=== PATIENT | female | born 1940 | race Caucasian/White ===

== ENCOUNTER 2020-03-16 09:48 | Observation (INO) ==
[2020-03-16] MEDS ORDERED: Aspirin 81 MG TAB.CHEW PO ONE (10:00)
[2020-03-16 10:12] LABS: Basophils % 0.3 %; Eosinophils # 0.1 K/mcL (0.0-0.6); Eosinophils % 0.9 %; Hematocrit 44.9 % (35.3-44.9); Hemoglobin 14.7 g/dL (11.5-15.4); Immature Granulocytes % 0.5 % (0-4); Lymphocytes # 3.3 K/mcL (0.6-4.6); Lymphocytes % 21.6 %; Mean Corpuscular HGB Conc 32.7 g/dL (31.6-35.5); Mean Corpuscular Hemoglobin 29.5 pg (28.0-33.3); Mean Platelet Volume 11.2 fL (9.4-12.4); Monocytes # 1.5 K/mcL (0.0-1.3); Neutrophils # 10.2 K/mcL (1.6-8.9); Platelet Count 293 K/mcL (140-400); Red Blood Count 4.99 M/mcL (3.82-4.97); Red Cell Distribution Width 12.6 % (11.5-14.5); Segmented Neutrophils % 66.7 %; White Blood Count 15.2 K/mcL (4.3-11.1)
[2020-03-16] MEDS ORDERED: Nitroglycerin 0.4 MG TAB.SUBL SL PRN (10:19)
[2020-03-16] MEDS ORDERED: Isovue-370 500 ML BOTTLE IVP ONE (10:24)
[2020-03-16] MEDS ORDERED: 0.9 % Sodium Chloride 1,000 ML IVC ONE (10:29)
[2020-03-16 10:36] LABS: Alanine Aminotransferase 19 Units/L (7-52); Albumin 4.2 g/dL (3.5-5.7); Albumin/Globulin Ratio 1.2 (1.1-2.2); Alkaline Phosphatase 82 Units/L (34-104); Aspartate Amino Transferase 21 Units/L (13-39); BUN/Creatinine Ratio 13 (6-26); Bilirubin,Total 1.1 mg/dL (0.3-1.0); Blood Urea Nitrogen 13 mg/dL (8-23); Calcium 11.2 mg/dL (8.6-10.3); Carbon Dioxide 32 mEq/L (23-29); Chloride 93 mEq/L (98-107); Globulin 3.4 g/dL (2.4-3.5); Glucose 124 mg/dL (70-105); Osmolality,Calculated 274 (280-300); Potassium 2.8 mEq/L (3.5-5.1); Sodium 131 mEq/L (136-145); Total Protein 7.6 g/dL (6.4-8.9); Troponin I < 0.03 ng/mL (< 0.04); eGFR For African Americans > 60 (> 60); eGFR For Non-African Americans 54 (> 60)
[2020-03-16] MEDS ORDERED: Potassium Effervescent 25 MEQ TABLET.EFF PO ONE (10:53)
[2020-03-16 11:15] LABS: Magnesium 1.6 mg/dL (1.6-2.6)
[2020-03-16] MEDS ORDERED: Naloxone 0.4 MG/ML INJ IVP PRN (14:03)
[2020-03-16] MEDS ORDERED: Famotidine 20 MG TABLET PO PRN (14:08)
[2020-03-16] MEDS ORDERED: Diphenoxylate/Atropine 1 TAB TABLET PO PRN (14:08)
[2020-03-16] MEDS ORDERED: clonazePAM 0.5 MG TABLET PO PRN (14:08)
[2020-03-16 14:36] LABS: Chol/HDL Ratio 3.3 (0-4.9); Cholesterol 136 mg/dL (< 200); HDL Cholesterol 41 mg/dL (40-59); LDL Cholesterol,Calculated 72 mg/dL (0-99); Triglycerides 115 mg/dL (< 150)
[2020-03-16 15:25] LABS: Estimated Average Glucose 117 mg/dl
[2020-03-16 16:25] LABS: Troponin I < 0.03 ng/mL (< 0.04)
[2020-03-16] MEDS: 0.9 % Sodium Chloride 1,000 ML IVC SCH (17:09)
[2020-03-16] MEDS: Ipratropium/Albuterol Neb 3 ML IH SCH ×2 (17:47→22:08)
[2020-03-16] MEDS: *HR* Heparin 5,000 UNIT/ML VIAL SQ SCH (18:12)
[2020-03-16 18:25] LABS: Bilirubin,Urine Negative (Negative); Blood,Urine Trace (Negative); Clarity,Urine Clear (Clear); Color,Urine Yellow (Yellow); Glucose,Urine (UA) Normal (Normal); Ketones,Urine Negative (Negative); Leukocyte Esterase,Urine Negative (Negative); Nitrite,Urine Negative (Negative); Protein,Urine Negative (Neg-Trace); Specific Gravity,Urine > 1.030 (1.010-1.025); Urobilinogen,Urine Normal (Normal)
[2020-03-16 18:27] LABS: Bacteria,Urine None Seen per hpf (None-Few); Hyaline Casts,Urine None Seen per lpf (None-Few); Squamous Epithelial Cell,Urine Many per lpf (None-Few)
[2020-03-16] MEDS: Primidone 50 MG TABLET PO SCH (21:34)
[2020-03-17] MEDS ORDERED: Ibuprofen 800 MG TABLET PO ONE (01:52)
[2020-03-17] MEDS: Ipratropium/Albuterol Neb 3 ML IH SCH ×4 (04:22→22:02)
[2020-03-17 05:49] LABS: Basophils % 0.2 %; Eosinophils # 0.1 K/mcL (0.0-0.6); Hematocrit 39.1 % (35.3-44.9); Immature Granulocytes % 0.5 % (0-4); Lymphocytes # 2.5 K/mcL (0.6-4.6); Lymphocytes % 22.4 %; Mean Corpuscular HGB Conc 32.7 g/dL (31.6-35.5); Mean Corpuscular Hemoglobin 29.3 pg (28.0-33.3); Mean Corpuscular Volume 89.5 fL (83.0-100.0); Mean Platelet Volume 11.4 fL (9.4-12.4); Monocytes % 8.6 %; Neutrophils # 7.5 K/mcL (1.6-8.9); Platelet Count 226 K/mcL (140-400); Red Blood Count 4.37 M/mcL (3.82-4.97); Red Cell Distribution Width 12.5 % (11.5-14.5); Segmented Neutrophils % 67.3 %; White Blood Count 11.2 K/mcL (4.3-11.1)
[2020-03-17 05:51] LABS: Hemoglobin 12.8 g/dL (11.5-15.4)
[2020-03-17 06:14] LABS: BUN/Creatinine Ratio 14 (6-26); Blood Urea Nitrogen 13 mg/dL (8-23); Calcium 10.4 mg/dL (8.6-10.3); Carbon Dioxide 29 mEq/L (23-29); Chloride 94 mEq/L (98-107); Glucose 112 mg/dL (70-105); Magnesium 1.8 mg/dL (1.6-2.6); Osmolality,Calculated 273 (280-300); Phosphorous 2.8 mg/dL (2.7-4.5); Potassium 2.7 mEq/L (3.5-5.1); Sodium 131 mEq/L (136-145); eGFR For African Americans > 60 (> 60); eGFR For Non-African Americans 60 (> 60)
[2020-03-17] MEDS: *HR* Heparin 5,000 UNIT/ML VIAL SQ SCH ×2 (06:15→18:11)
[2020-03-17] MEDS ORDERED: Regadenoson 0.4 MG/5 ML SYRINGE IVP ONE (06:22)
[2020-03-17] MEDS ORDERED: Potassium Chloride 40 MEQ, Lidocaine 1% 2 ML in 0.9 % Sodium Chloride 500 ML IVPB ONE (08:25)
[2020-03-17] MEDS ORDERED: VITAMIN A 10000 UNIT PO SCH (09:00)
[2020-03-17] MEDS ORDERED: NON-FORMULARY MEDICATION 1 EACH EACH (Magnesium 250 MG) PO SCH (09:00)
[2020-03-17] MEDS ORDERED: NON-FORMULARY MEDICATION 1 EACH EACH (Trospium Chloride 20 MG) PO SCH (09:00)
[2020-03-17] MEDS: Primidone 50 MG TABLET PO SCH ×2 (13:55→21:22)
[2020-03-17] MEDS: Cyanocobalamin (B-12) 1,000 MCG TABLET PO SCH (13:56)
[2020-03-17] MEDS: Cholecalciferol (D-3) 1,000 UNIT (25MCG) TABLET PO SCH (13:56)
[2020-03-17] MEDS: metOLazone 2.5 MG TABLET PO SCH (13:56)
[2020-03-17] MEDS: PARoxetine 20 MG TABLET PO SCH (13:57)
[2020-03-17 20:36] LABS: BUN/Creatinine Ratio 14 (6-26); Blood Urea Nitrogen 15 mg/dL (8-23); Calcium 10.1 mg/dL (8.6-10.3); Carbon Dioxide 30 mEq/L (23-29); Chloride 98 mEq/L (98-107); Glucose 110 mg/dL (70-105); Osmolality,Calculated 277 (280-300); Potassium 3.3 mEq/L (3.5-5.1); Sodium 133 mEq/L (136-145); eGFR For African Americans > 60 (> 60); eGFR For Non-African Americans 50 (> 60)
[2020-03-18] MEDS: 0.9 % Sodium Chloride 1,000 ML IVC SCH (00:51)
[2020-03-18] MEDS: Ipratropium/Albuterol Neb 3 ML IH SCH ×2 (03:40→10:27)
[2020-03-18 04:36] LABS: BUN/Creatinine Ratio 15 (6-26); Blood Urea Nitrogen 14 mg/dL (8-23); Carbon Dioxide 28 mEq/L (23-29); Chloride 101 mEq/L (98-107); Glucose 114 mg/dL (70-105); Magnesium 1.6 mg/dL (1.6-2.6); Osmolality,Calculated 279 (280-300); Potassium 3.4 mEq/L (3.5-5.1); Sodium 134 mEq/L (136-145); eGFR For African Americans > 60 (> 60); eGFR For Non-African Americans 56 (> 60)
[2020-03-18] MEDS: *HR* Heparin 5,000 UNIT/ML VIAL SQ SCH (06:04)
[2020-03-18 07:30] VITALS: BP 133/75
[2020-03-18] MEDS: Cyanocobalamin (B-12) 1,000 MCG TABLET PO SCH (08:16)
[2020-03-18] MEDS: Cholecalciferol (D-3) 1,000 UNIT (25MCG) TABLET PO SCH (08:16)
[2020-03-18] MEDS: PARoxetine 20 MG TABLET PO SCH (08:16)
[2020-03-18] MEDS: Primidone 50 MG TABLET PO SCH (08:16)
[2020-03-18] MEDS: metOLazone 2.5 MG TABLET PO SCH (08:20)
== END 2020-03-18 14:16 | disposition home or self-care (01) ==
LOC: 3BNU 09:48 → EMEROOARM 09:48 → SUATTDRO 14:06 → 3BNU 15:07
PROVIDERS: ADMIT Internal Medicine; ATTEND Internal Medicine

== ENCOUNTER 2021-11-12 06:48 | Observation (INO) ==
[~2021-11-12 06:48] MED LIST: Povidone-Iodine 45 ML, Sodium Chloride IRRigation 1,000 ML IR ONE; TOTAL JOINT MIXTURE (100ML) INTRAART ONE
[2021-11-12] MEDS ORDERED: CeFAZolin Syr 2,000MG/20 ML 2,000 MG/20 ML SYRINGE IVPB ONE (07:10)
[2021-11-12] MEDS ORDERED: Ringers Solution, Lactated 1,000 ML IVC SCH (07:15)
[2021-11-12] MEDS ORDERED: Vancomycin 1,500 MG/265 ML IV.SOLN IVPB ONE (07:39)
[2021-11-12] MEDS ORDERED: Famotidine 20 MG/2 ML VIAL IVP ONE (08:00)
[2021-11-12] MEDS ORDERED: Acetaminophen IV 1,000 MG/100 ML BAG IVPB ONE (08:00)
[2021-11-12] MEDS ORDERED: Albuterol 2.5 MG/3 ML NEBULIZER IH ONE (08:00)
[2021-11-12] MEDS ORDERED: *HR* Propofol 200 MG/20 ML VIAL IVP ONE (08:24)
[2021-11-12] MEDS ORDERED: Ondansetron 4 MG/2 ML VIAL ONE (08:26)
[2021-11-12] MEDS ORDERED: Tranexamic Acid 1,000 MG/10 ML VIAL ONE (08:26)
[2021-11-12] MEDS ORDERED: Lidocaine -MPF 2% 5 ML VIAL ONE (08:26)
[2021-11-12] MEDS ORDERED: *HR* FentaNYL (PF) 100 MCG/2 ML VIAL ONE (08:33)
[2021-11-12] MEDS ORDERED: Vancomycin 1,000 MG VIAL ONE (09:00)
[2021-11-12] MEDS ORDERED: *HR* Promethazine 25 MG/ML VIAL IM PRN (13:01)
[2021-11-12] MEDS ORDERED: Diphenoxylate/Atropine 1 TAB TABLET PO PRN (13:01)
[2021-11-12] MEDS ORDERED: *HR* OxyCODONE Immed Rel 5 MG TABLET PO PRN (13:01)
[2021-11-12] MEDS ORDERED: Naloxone 0.4 MG/ML INJ IVP PRN (13:01)
[2021-11-12] MEDS ORDERED: Ondansetron 4 MG/2 ML VIAL IVP PRN (13:01)
[2021-11-12] MEDS ORDERED: clonazePAM 0.5 MG TABLET PO PRN (13:01)
[2021-11-12] MEDS ORDERED: MOM Conc 10 ML UD.LIQ PO PRN (13:01)
[2021-11-12] MEDS ORDERED: Sennosides 8.6 MG TABLET PO PRN (13:01)
[2021-11-12] MEDS: Ketorolac 30 MG/ML VIAL IVP SCH ×3 (13:44→23:41)
[2021-11-12] MEDS: Ascorbic Acid 500 MG TABLET PO SCH (18:18)
[2021-11-12] MEDS: CeFAZolin 2 GM/120 ML BAG IVPB SCH ×2 (18:56→23:41)
[2021-11-12] MEDS: Ringers Solution, Lactated 1,000 ML IVC SCH (20:02)
[2021-11-12] MEDS: Sucralfate 1 GM TABLET PO SCH (20:46)
[2021-11-12] MEDS: Primidone 50 MG TABLET PO SCH (20:46)
[2021-11-12] MEDS: TROSPIUM CHLORIDE 20 MG PO SCH (20:46)
[2021-11-12] MEDS: Menthol 1 EACH LOZENGE PO PRN (23:37)
[2021-11-13 05:22] LABS: Basophils % 0.2 %; Eosinophils % 0.3 %; Hematocrit 29.8 % (35.3-44.9); Hemoglobin 9.7 g/dL (11.5-15.4); Immature Granulocytes % 0.8 % (0-4); Lymphocytes # 1.8 K/mcL (0.6-4.6); Lymphocytes % 17.6 %; Mean Corpuscular HGB Conc 32.6 g/dL (31.6-35.5); Mean Corpuscular Hemoglobin 31.9 pg (28.0-33.3); Mean Platelet Volume 11.8 fL (9.4-12.4); Monocytes # 1.4 K/mcL (0.0-1.3); Monocytes % 13.1 %; Platelet Count 123 K/mcL (140-400); Red Blood Count 3.04 M/mcL (3.82-4.97); Red Cell Distribution Width 12.7 % (11.5-14.5); White Blood Count 10.3 K/mcL (4.3-11.1)
[2021-11-13 05:42] LABS: Calcium 8.5 mg/dL (8.6-10.3); Potassium 3.3 mEq/L (3.5-5.1)
[2021-11-13] MEDS: Ketorolac 30 MG/ML VIAL IVP SCH ×3 (07:04→17:05)
[2021-11-13] MEDS: metOLazone 2.5 MG TABLET PO SCH (07:45)
[2021-11-13] MEDS: Cholecalciferol (D-3) 1,000 UNIT (25MCG) TABLET PO SCH (07:46)
[2021-11-13] MEDS: Magnesium Oxide 400 MG TABLET PO SCH (07:46)
[2021-11-13] MEDS: BuPROPion XL (24 HR) 150 MG TABLET PO SCH (07:47)
[2021-11-13] MEDS: Ascorbic Acid 500 MG TABLET PO SCH ×2 (07:47→17:04)
[2021-11-13] MEDS: Sucralfate 1 GM TABLET PO SCH ×2 (07:47→20:16)
[2021-11-13] MEDS: Multivit/Ca/Min/Fe/FA 1 TAB TABLET PO SCH ×2 (07:47→08:02)
[2021-11-13] MEDS: Primidone 50 MG TABLET PO SCH ×2 (07:48→20:16)
[2021-11-13] MEDS: TROSPIUM CHLORIDE 20 MG PO SCH ×2 (08:01→20:24)
[2021-11-13] MEDS: PARoxetine 20 MG TABLET PO SCH (11:52)
[2021-11-13] MEDS: Aspirin Enteric Coated 81 MG Tablet PO SCH (11:52)
[2021-11-13] MEDS ORDERED: Ipratropium/Albuterol Neb 3 ML IH PRN (13:49)
[2021-11-13] MEDS: Menthol 1 EACH LOZENGE PO PRN (20:18)
[2021-11-13] MEDS: Patient Taking Own Medication 1 EACH PO SCH (20:23)
[2021-11-13] MEDS: Ringers Solution, Lactated 1,000 ML IVC SCH (20:28)
[2021-11-14] MEDS: Ketorolac 30 MG/ML VIAL IVP SCH ×4 (00:43→20:38)
[2021-11-14 01:26] LABS: Basophils % 0.2 %; Eosinophils # 0.2 K/mcL (0.0-0.6); Eosinophils % 2.4 %; Hematocrit 29.8 % (35.3-44.9); Hemoglobin 10.2 g/dL (11.5-15.4); Immature Granulocytes % 0.8 % (0-4); Lymphocytes # 1.5 K/mcL (0.6-4.6); Lymphocytes % 16.9 %; Mean Corpuscular HGB Conc 34.2 g/dL (31.6-35.5); Mean Corpuscular Hemoglobin 32.9 pg (28.0-33.3); Mean Corpuscular Volume 96.1 fL (83.0-100.0); Mean Platelet Volume 12.1 fL (9.4-12.4); Monocytes # 1.2 K/mcL (0.0-1.3); Monocytes % 13.6 %; Neutrophils # 5.9 K/mcL (1.6-8.9); Platelet Count 127 K/mcL (140-400); Red Cell Distribution Width 12.6 % (11.5-14.5); Segmented Neutrophils % 66.1 %; White Blood Count 8.9 K/mcL (4.3-11.1)
[2021-11-14 01:43] LABS: BUN/Creatinine Ratio 17 (6-26); Blood Urea Nitrogen 15 mg/dL (8-23); Calcium 8.9 mg/dL (8.6-10.3); Carbon Dioxide 26 mEq/L (23-29); Chloride 101 mEq/L (98-107); Glucose 94 mg/dL (70-105); Osmolality,Calculated 269 (280-300); Potassium 3.3 mEq/L (3.5-5.1); Sodium 129 mEq/L (136-145); eGFR For African Americans > 60 (> 60); eGFR For Non-African Americans > 60 (> 60)
[2021-11-14] MEDS: Sucralfate 1 GM TABLET PO SCH ×2 (10:30→20:35)
[2021-11-14] MEDS: PARoxetine 20 MG TABLET PO SCH (10:30)
[2021-11-14] MEDS: Primidone 50 MG TABLET PO SCH ×2 (10:30→20:34)
[2021-11-14] MEDS: Ascorbic Acid 500 MG TABLET PO SCH ×2 (10:30→17:11)
[2021-11-14] MEDS: Aspirin Enteric Coated 81 MG Tablet PO SCH (10:30)
[2021-11-14] MEDS: Cholecalciferol (D-3) 1,000 UNIT (25MCG) TABLET PO SCH (10:43)
[2021-11-14] MEDS: BuPROPion XL (24 HR) 150 MG TABLET PO SCH (10:43)
[2021-11-14] MEDS: metOLazone 2.5 MG TABLET PO SCH (10:43)
[2021-11-14] MEDS: Magnesium Oxide 400 MG TABLET PO SCH (10:44)
[2021-11-14] MEDS: Multivit/Ca/Min/Fe/FA 1 TAB TABLET PO SCH ×2 (10:44)
[2021-11-14] MEDS: TROSPIUM CHLORIDE 20 MG PO SCH ×2 (11:14→20:36)
[2021-11-14] MEDS: Patient Taking Own Medication 1 EACH PO SCH ×2 (11:14→20:36)
[2021-11-14] MEDS: Simethicone 80 MG TAB.CHEW PO PRN (23:51)
[2021-11-15] MEDS: Ketorolac 30 MG/ML VIAL IVP SCH ×4 (03:08→18:10)
[2021-11-15] MEDS: Aspirin Enteric Coated 81 MG Tablet PO SCH (07:57)
[2021-11-15] MEDS: Sucralfate 1 GM TABLET PO SCH (07:58)
[2021-11-15] MEDS: Cholecalciferol (D-3) 1,000 UNIT (25MCG) TABLET PO SCH (07:58)
[2021-11-15] MEDS: Simethicone 80 MG TAB.CHEW PO PRN (07:59)
[2021-11-15] MEDS: BuPROPion XL (24 HR) 150 MG TABLET PO SCH (07:59)
[2021-11-15] MEDS: Multivit/Ca/Min/Fe/FA 1 TAB TABLET PO SCH ×2 (07:59→12:41)
[2021-11-15] MEDS: PARoxetine 20 MG TABLET PO SCH (07:59)
[2021-11-15] MEDS: Magnesium Oxide 400 MG TABLET PO SCH (08:01)
[2021-11-15] MEDS: Ascorbic Acid 500 MG TABLET PO SCH ×2 (08:01→16:27)
[2021-11-15] MEDS: metOLazone 2.5 MG TABLET PO SCH (08:01)
[2021-11-15] MEDS: Primidone 50 MG TABLET PO SCH (08:01)
[2021-11-15] MEDS: TROSPIUM CHLORIDE 20 MG PO SCH (10:37)
[2021-11-15] MEDS: Patient Taking Own Medication 1 EACH PO SCH (10:37)
[2021-11-15 15:50] VITALS: BP 137/70; PULSE 84; TEMP 97.9; O2SAT 93
== END 2021-11-15 18:15 ==
LOC: 4WAOSI 06:48 → SDCAOSI 06:48 → 4WAOSI 12:25
PROVIDERS: ADMIT Orthopaedic Surgery; ATTEND Orthopaedic Surgery